=== PATIENT | female | born 1980 ===

== ENCOUNTER 2019-06-07 05:00 | Day surgery (SDC) | payer OTHER ==
[~2019-06-07 05:00] MED LIST: ATENOLOL25 MG
[2019-06-07] MEDS ORDERED: Tylenol #3 PO (08:52)
[2019-06-07] MEDS ORDERED: NAPROXEN500 M1 PO (08:52)
== END 2019-06-07 13:00 | disposition home or self-care (01) ==
LOC: CIR.AMB 05:00
DX: N84.0 Polyp of corpus uteri (principal); D25.0 Submucous leiomyoma of uterus; N72 Inflammatory disease of cervix uteri